=== PATIENT | male | born 1995 | race Caucasian/White ===

== ENCOUNTER 2017-01-03 01:59 | Emergency (ER) | payer OTHER ==
[~2017-01-03] VITALS: Ht 177.8 cm; Wt 122.8 kg
[~2017-01-03 01:59] MED LIST: CONCERTA36 MG PO; NAPROSYN500 MG PO; TYLENOL WITH C1 EACH PO; ULTRAM50 MG PO
[2017-01-03] MEDS ORDERED: PERCOCET 5/31 TABLET PO (04:00)
[2017-01-03] MEDS ORDERED: MOTRIN600 MG PO (04:00)
[2017-01-03 04:43] VITALS: BP 122/71
== END 2017-01-03 04:46 | disposition home or self-care (01) ==
LOC: EME 01:59
PROC: 2W3LX1Z Immobilization of Right Lower Extremity using Splint (ICD-10-PCS; principal; 2017-01-03)
DX: S92.354A Nondisplaced fracture of fifth metatarsal bone, right foot, initial encounter for closed fracture (principal); X50.1XXA Overexertion from prolonged static or awkward postures, initial encounter; Y93.72 Activity, wrestling
CPT/HCPCS: 73630; 99281; 99284